=== PATIENT | male | born 1945 | race Caucasian/White ===

== ENCOUNTER 2017-02-27 06:19 | Inpatient (IN) | payer MEDICARE ==
[~2017-02-27] VITALS: Ht 174 cm; Wt 93.6 kg
[~2017-02-27 06:19] MED LIST: ASPI81CH CHEW; ATOR20TA15 PO; HYDR-4107 PO; LISI10TA3 PO; LORA-520 PO; MOBI7.5T PO; OMEP20TA PO; TRAM50TA PO
[2017-02-27] MEDS ORDERED: ceFAZolin 1,000 MG/NS 100 ML IV SCH ×2 (06:45)
[2017-02-27] MEDS ORDERED: LACTATED RINGER'S 1000 ML INJ 1,000 ML IV SCH (06:45)
[2017-02-27] MEDS ORDERED: ACETAMINOPHEN 1000 MG/100 ML 100 ML IV ONE (06:47)
[2017-02-27] MEDS ORDERED: LACTATED RINGER'S 1000 ML IV PRN (07:00)
[2017-02-27] MEDS ORDERED: POVIDONE IODINE 5% (ANTISEPSIS KIT) 4 APPLICATIONS EACH NARE PRN (07:00)
[2017-02-27] MEDS ORDERED: INSULIN HUMAN REGULAR 1,000 UNITS/10 ML VIAL SQ PRN (07:00)
[2017-02-27] MEDS ORDERED: METOPROLOL TARTRATE 25 MG TAB PO PRN (07:00)
[2017-02-27] MEDS ORDERED: SODIUM CHLORID 0.9% 500 ML IV PRN (07:00)
[2017-02-27] MEDS ORDERED: CHLORHEXIDINE GLUCONATE 2 % 1 PACK (2 CLOTHS) TOPICAL PRN (07:00)
[2017-02-27] MEDS ORDERED: CYCL1TAB29 PO (07:15)
[2017-02-27] MEDS ORDERED: LISI10TA3 PO (07:15)
[2017-02-27] MEDS ORDERED: LATA0.002 EACH EYE (07:15)
[2017-02-27] MEDS ORDERED: CLAR10CA3 PO (07:15)
[2017-02-27] MEDS ORDERED: AMLO10TA2 PO (07:15)
[2017-02-27] MEDS ORDERED: THROMBIN (TOPICAL) 5,000 UNIT VIAL ONE (07:47)
[2017-02-27] MEDS ORDERED: GELFOAM SIZE 100 ONE (07:48)
[2017-02-27] MEDS ORDERED: GENTAMICIN SULFATE 80 MG/2 ML VIAL ONE (07:48)
[2017-02-27] MEDS ORDERED: LIDOCAINE 2%/EPINEPHrine PF 1:200,000 20ML SDV ONE (07:48)
[2017-02-27] MEDS ORDERED: FAMOTIDINE 20 MG/2 ML VIAL ONE (08:08)
[2017-02-27] MEDS ORDERED: ceFAZolin INJ 1,000 MG VIAL IV ONE ×3 (11:20→15:24)
[2017-02-27] MEDS ORDERED: PROPOFOL 200 MG/20 ML AMP IV ONE (12:00)
[2017-02-27] MEDS ORDERED: ONDANSETRON HCL 4 MG/2 ML VIAL IV PUSH ONE (12:00)
[2017-02-27] MEDS ORDERED: LACTATED RINGER'S 1000 ML INJ 2,000 ML IV ONE (12:00)
[2017-02-27] MEDS ORDERED: SODIUM CHLOR 0.9% 1000 ML INJ 1,000 ML IV ONE (12:00)
[2017-02-27] MEDS ORDERED: PHENYLEPH/NS 1000 MCG/10 ML SYR IV ONE (12:00)
[2017-02-27] MEDS ORDERED: MIDAZOLAM HCL 2 MG/2 ML VIAL ONE (15:09)
[2017-02-27] MEDS ORDERED: DO NOT ADM ANY ANTICOAGULANT DRUGS PRN (16:54)
--- NOTE | 2017-02-27 16:56 | RADRPT ---
EXAM DATE/TIME: 02/27/2017 09:34 [place] COMPARISON: No previous studies available for comparison. INDICATIONS : L3-L4 laminectomy, discectomy, and interbody fusion. MEDICAL HISTORY : None. SURGICAL HISTORY : None. ENCOUNTER: Initial ACUITY: 1 day PAIN SCORE: 10/10 LOCATION: lumbar FINDINGS: AP and lateral cone-down views of the lumbar spine were obtained and demonstrate the patient status p ost fusion at the L3-4 level with bilateral pedicle screws and posterior fixation rods. Metallic daphney ers are noted in the interspace. There are degenerative changes at the L4-5 and L5-S1 levels with dis c space narrowing and mild hypertrophic change. The alignment is anatomic. The study is labeled assum ing 5 nonrib-bearing lumbar type vertebra. CONCLUSION: Status post fusion at the L3-4 level. Chris Coto MD on February 27, 2017 at 16:53 Board Certified Radiologist. This report was verified electronically.
[2017-02-27] MEDS ORDERED: *RESP: ALBUTEROL 2.5 MG/3 ML NEB (PRN) PERIprocedural Use ONLY NEB ONE ×2 (17:04→19:09)
[2017-02-27] MEDS ORDERED: HYDROmorphone HCL PF 1 MG/ML VIAL IV PRN ×2 (17:15)
[2017-02-27] MEDS ORDERED: METHOCARBAMOL 500 MG TAB PO PRN (17:15)
[2017-02-27] MEDS ORDERED: SODIUM CHLORIDE 0.9% FLUSH 10 ML FLUSH IV FLUSH PRN (17:15)
[2017-02-27] MEDS ORDERED: ONDANSETRON HCL 4 MG/2 ML VIAL IV PRN (17:15)
[2017-02-27] MEDS ORDERED: ACETAMINOPHEN/HYDROcodone 325 MG/5 MG TAB PO PRN (17:15)
[2017-02-27] MEDS ORDERED: MORPHINE SULFATE 4 MG/ML INJ IV PRN (17:15)
[2017-02-27] MEDS ORDERED: NALOXONE HCL 0.4 MG/ML AMP IV PRN ×2 (17:15→21:00)
[2017-02-27] MEDS ORDERED: LORATADINE 10 MG TAB PO PRN (17:15)
--- NOTE | 2017-02-27 17:15 | PD.OP ---
Operative Report Date of Surgery: Feb 27, 2017 Preoperative Diagnosis: (1) Lumbar canal stenosis (2) Spondylolisthesis of lumbar region (3) Lumbar radiculopathy 1. Severe Lumbar canal stenosis 2. Grade 1 L3 4 spondylolisthesis 3. Sequestered L3 4 herniated nucleus pulposus with central annular tear 4. Lumbar radiculopathy and neurogenic claudication Postoperative Diagnosis: (1) Lumbar canal stenosis (2) Spondylolisthesis of lumbar region (3) Lumbar radiculopathy 1. Severe Lumbar canal stenosis 2. Grade 1 L3 4 spondylolisthesis 3. Sequestered L3 4 herniated nucleus pulposus with central annular tear 4. Lumbar radiculopathy and neurogenic claudication Procedure: 1. Bilateral L34 decompressive semi-laminectomy with medial left and total right facetectomy and foraminotomy 2. L3 4 discectomy for section of sequestered herniated nucleus pulposis 3. L3 4 interbody fusion with PEEK cage, lamina autograft, demineralized bone matrix 4. Bilateral L3 4 posterior instrumentation with pedicle screw fixation 5. Left L3 4 posterior lateral fusion with lamina autograft and demineralized bone matrix 6. Repair of right dorsal L3 4 level dural tear-microtechnique Anesthesia: General Surgeon: Ronnie Hayes Case Management Social Worker(s): Prieto Wright Operation and Findings: Findings: Severe L3 4 bilateral ligament hypertrophy with significant canal stenosis. Large central annular tear was sequestered herniated nucleus pulposus impinging on the ventral thecal sac. Significant adhesions at the dorsal spinal canal with small dural tear developed despite cautious dissection. Primary repair under high-power magnification. Procedure in detail: The patient was brought to the operating room and general endotracheal anesthesia induced without difficulty Lines were established by Anesthesia Sequential compression devices were in place The patient was positioned prone on the concentric Billy table with the side bolsters and all extremities appropriately padded Leads for intraoperative neuro monitoring were placed prior to positioning and a baseline study obtained Appropriate timeout procedure was performed with all personnel present and in agreement The lumbar region was shaved with clippers and sterilely prepped and draped t 1% Xylocaine with epinephrine was used for local infiltration over the incision site which was made at the midline at L3-4 level. The incision was carried sharply down to the lumbodorsal fascia which was sharply incised adjacent to the spinous processes of L3 and L4 on each side. Ruff elevator was used for subperiosteal elevation of paraspinous musculature and fascia away from the lamina and spinous processes The deep self-retaining retractor was placed The appropriate levels were verified with intraoperative C-arm The microscope was moved into place and used for the remainder of the procedure including the closure The entry point for the pedicle screws were determined by anatomic and radiographic landmarks. The pedicle screw site was prepared with the awl followed by the pedicle finder and the tap. The ball tip probe was used to probe the pedicle screw site to ensure that there was no breakout through the pedicle. The appropriate size Spine Wave Sniper pedicle screw was placed at each pedicle screw site 6.5 mm screws were utilized. The screw placement was verified with intraoperative C-arm and intraoperative neural monitoring and felt to be satisfactory. The TPS drill with a 5 mm bone bur followed by the Kerrison rongeur was used to remove the inferior two thirds of the lamina at the cephalad level of the decompression and the superior third of the lamina at the caudal level of the decompression at the right L3 4 level. Then working across the midline towards the left side, the ventral aspect of the inferior left L3 and superior left L4 lamina were removed along with a moderate portion of the medial left L3 4 facet. Hypertrophied ligamentum flavum was elevated away from the thecal sac and exiting nerve roots with the thin ligament dissector and resected with a 15 blade knife and Kerrison rongeur. There were significant adhesions at the dorsal aspect of the canal between the ligament and the dura. Despite very careful dissection under the microscope, a small dural tear developed. This was primarily repaired with 6-0 Prolene suture with 2 small stitches placed. No further CSF leakage was encountered. The thecal sac and exiting nerve root were freed up from surrounding adhesions with the microdissectors and gently retracted medially revealing the underlying disc and annulus. There was moderate central annular tear with sequestered fragments of disc material protruding against the thecal sac. The thecal sac in this region was carefully freed up with the microdissectors. The L3 4 annulus was incised with the 11 blade knife and discectomy performed with pituitary biopsy forceps and straight and angled curettes The endplate scrapers were used to decorticate the endplates and any remaining debris was removed with the antibiotic irrigation and suction and pituitary biopsy forceps The appropriate size PEEK cage was packed with retained lamina cancellus autograft And a small amount of demineralized bone matrix The 8 x 10 x 28 mm lordotic cage was utilized. Prior to cage placement additional mixture of lamina autograft and demineralized bone matrix was placed in the L3 4 interspace using the funnel. The cage was placed at the L3 4 level with a good fit of the cage. The placement was checked under the microscope and with intraoperative C-arm and felt to be satisfactory. The thecal sac and nerve roots were probed with the long blunt nerve hook and felt to be well decompressed The rods were placed across the pedicle screws on each side. The locking caps were secured with the torque wrench and anti-torque device Compression was utilized to obtain satisfactory lordosis. The entire construct was checked with intraoperative C-arm and felt to be satisfactory The region was well irrigated with antibiotic irrigation The posterior lateral structures at the left L3 4 levels were decorticated with the TPS drill The shavings were left in place, to which was added the remaining autograft and allograft bone which was firmly packed in place for the posterior lateral fusion. The 10 [place] fluted drain was left in place at the operative side and brought out through a incision at the upper lumbar region and secured to the skin with nylon suture and attached to sterile suction bleeding was carefully controlled with the bipolar forceps The closure was performed with 0 Vicryl interrupted for the deep and superficial fascia, with 3-0 Vicryl for the subcutaneous closure and 4-0 Vicryl running subcuticular closure. Dressings sterile Mastisol, Steri-Strips and Primapore was placed The patient was turned into supine position and taken to recovery room in stable condition All counts were correct at the end of the case Estimated blood loss was 400 cc No specimen was sent to pathology Neuro monitoring was stable during the procedure Ronnie Hayes MD Feb 27, 2017 17:15
[2017-02-27] MEDS: D5-1/2 NS + KCL 20 MEQ INJ 1,000 ML IV SCH (17:40)
[2017-02-27] MEDS ORDERED: *morphine SULFATE 8 MG/ML PERIprocedure ONLY ONE ×3 (18:13→19:07)
[2017-02-27 18:15] LABS: AUTOMATED NEUTROPHIL # 7.1 TH/MM3 (1.8-7.7); BASOPHIL % 0.3 % (0.0-2.0); EOSINOPHIL % 0.1 % (0.0-4.0); HEMATOCRIT 40.3 % (39.0-51.0); HEMO FLAGS DIFF FINAL; LYMPH % 8.4 % (9.0-44.0); LYMPHOCYTE # 0.7 TH/MM3 (1.0-4.8); MEAN CELL VOLUME 96.1 FL (80.0-100.0); MEAN CORPUSCULAR HEMOGLOBIN 32.4 PG (27.0-34.0); MEAN CORPUSCULAR HGB CONC 33.7 % (32.0-36.0); MONO % 2.1 % (0.0-8.0); NEUT % 89.1 % (16.0-70.0); PLATELET COUNT 144 TH/MM3 (150-450); RED BLOOD COUNT 4.19 MIL/MM3 (4.50-5.90)
[2017-02-27 18:25] LABS: BICARBONATE 25.5 MEQ/L (21.0-32.0); POTASSIUM 4.6 MEQ/L (3.5-5.1)
[2017-02-27 21:00] VITALS: BP 115/58; PULSE 80; RESP 18; TEMP 98.6; O2SAT 96
[2017-02-27] MEDS ORDERED: HYDROmorphone HCL PCA 6 MG/30 ML IV SCH (21:00)
[2017-02-27] MEDS: LATANOPROST 0.005% OPHT SOLN 2.5 ML BTL EACH EYE SCH (21:00)
[2017-02-27] MEDS: SODIUM CHLORIDE 0.9% FLUSH 10 ML FLUSH IV FLUSH SCH (21:00)
[2017-02-27] MEDS: KETOROLAC TROMETHAMINE 30 MG/ML (IVP) VIAL IV PUSH SCH (21:58)
[2017-02-27] MEDS: DOCUSATE SODIUM 100 MG CAP PO SCH (21:58)
[2017-02-27] MEDS: PCA - TOTAL MG DILAUDID DELIVERED PER SHIFT OTHER SCH (22:00)
[2017-02-27 22:12] VITALS: O2SAT 97
[2017-02-28] VITALS (7 sets, daily range): BP systolic 105–135; BP diastolic 61–85; PULSE 72–86; RESP 18; TEMP 98.1–98.4; O2SAT 95–99
[2017-02-28] MEDS: KETOROLAC TROMETHAMINE 30 MG/ML (IVP) VIAL IV PUSH SCH ×3 (05:05→21:41)
[2017-02-28] MEDS: D5-1/2 NS + KCL 20 MEQ INJ 1,000 ML IV SCH ×2 (05:06→13:24)
[2017-02-28] MEDS: PCA - TOTAL MG DILAUDID DELIVERED PER SHIFT OTHER SCH ×3 (06:00→21:41)
[2017-02-28] MEDS: PANTOPRAZOLE SOD 40 MG DELAYED RELEASE TAB PO SCH (08:20)
[2017-02-28] MEDS: LISINOPRIL 10 MG TAB PO SCH (08:20)
[2017-02-28] MEDS: SODIUM CHLORIDE 0.9% FLUSH 10 ML FLUSH IV FLUSH SCH ×2 (08:21→21:00)
[2017-02-28] MEDS: DOCUSATE SODIUM 100 MG CAP PO SCH ×2 (08:21→21:00)
[2017-02-28 10:39] LABS: AUTOMATED NEUTROPHIL # 8.3 TH/MM3 (1.8-7.7); BASOPHIL % 0.2 % (0.0-2.0); EOSINOPHIL % 0.2 % (0.0-4.0); HEMATOCRIT 39.9 % (39.0-51.0); HEMO FLAGS DIFF FINAL; LYMPH % 15.5 % (9.0-44.0); LYMPHOCYTE # 1.7 TH/MM3 (1.0-4.8); MEAN CELL VOLUME 96.6 FL (80.0-100.0); MEAN CORPUSCULAR HGB CONC 33.1 % (32.0-36.0); MONO % 7.4 % (0.0-8.0); NEUT % 76.7 % (16.0-70.0); PLATELET COUNT 168 TH/MM3 (150-450); RED BLOOD COUNT 4.14 MIL/MM3 (4.50-5.90); RED CELL DISTRIBUTION WIDTH 13.1 % (11.6-17.2); WHITE BLOOD COUNT 10.9 TH/MM3 (4.0-11.0)
[2017-02-28 10:53] LABS: INTERNATIONAL NORMALIZED RATIO 0.9 RATIO; PROTHROMBIN TIME - PATIENT 10.4 SEC (9.8-11.6)
[2017-02-28] MEDS: oxyCODONE/ACETAMINOPHEN 10 MG/325 MG TAB PO PRN ×2 (10:55→16:55)
[2017-02-28 11:19] LABS: BICARBONATE 26.2 MEQ/L (21.0-32.0); POTASSIUM 3.8 MEQ/L (3.5-5.1)
[2017-02-28] MEDS: LATANOPROST 0.005% OPHT SOLN 2.5 ML BTL EACH EYE SCH (21:00)
--- NOTE | 2017-02-28 23:53 | HHI.NSPN ---
History Chief Complaint: back pain Interval History Patient was recent onset of progressive lower extremity pain, low back pain. Preoperative studies revealed severe L3 4 stenosis, grade 1 spondylolisthesis, herniated disc 02/27/17: L3 4 decompressive laminectomy discectomy interbody fusion Exam Results Vital Signs Date Time Temp Pulse Resp B/P (MAP) Pulse Ox O2 Delivery O2 Flow Rate FiO2 02/28/17 21:41 20 02/28/17 19:03 98.4 72 123/79 (94) 97 02/28/17 18:12 Nasal Cannula 2.00 Intake and Output 02/28/17 02/28/17 02/28/17 07:59 15:59 23:59 Intake Total 960 ml 1159 ml Output Total 860 ml 1493 ml 30 ml Balance -860 ml -533 ml 1129 ml Physical Examination Respirations clear and regular Cardiac regular Abdomen soft No extremity edema Sensation intact to light touch lower extremities Strength intact lower extremities Mild drain output Lab, Micro, Other Results Laboratory Tests Test 02/28/17 09:44 02/28/17 09:47 White Blood Count 10.9 TH/MM3 Red Blood Count 4.14 MIL/MM3 Hemoglobin 13.2 GM/DL Hematocrit 39.9 % Mean Corpuscular Volume 96.6 FL Mean Corpuscular Hemoglobin 32.0 PG Mean Corpuscular Hemoglobin Concent 33.1 % Red Cell Distribution Width 13.1 % Platelet Count 168 TH/MM3 Mean Platelet Volume 10.1 FL Neutrophils (%) (Auto) 76.7 % Lymphocytes (%) (Auto) 15.5 % Monocytes (%) (Auto) 7.4 % Eosinophils (%) (Auto) 0.2 % Basophils (%) (Auto) 0.2 % Neutrophils # (Auto) 8.3 TH/MM3 Lymphocytes # (Auto) 1.7 TH/MM3 Monocytes # (Auto) 0.8 TH/MM3 Eosinophils # (Auto) 0.0 TH/MM3 Basophils # (Auto) 0.0 TH/MM3 CBC Comment DIFF FINAL Differential Comment Prothrombin Time 10.4 SEC Prothromb Time International Ratio 0.9 RATIO Activated Partial Thromboplast Time 26.0 SEC Blood Urea Nitrogen 10 MG/DL Creatinine 0.93 MG/DL Random Glucose 124 MG/DL Calcium Level 8.9 MG/DL Sodium Level 137 MEQ/L Potassium Level 3.8 MEQ/L Chloride Level 101 MEQ/L Carbon Dioxide Level 26.2 MEQ/L Anion Gap 10 MEQ/L Estimat Glomerular Filtration Rate 80 ML/MIN Medical Decision Making Impression and Plan Impression: 1. Doing well following lumbar laminectomy, discectomy interbody fusion for severe stenosis, grade 1 anterior listhesis Plan: Continue therapy Discontinue drain Increase activity Discontinue STRAPPER Anticipate discharge home 03/01/2017 depending on clinical course Ronnie Hayes MD Feb 28, 2017 23:53
[2017-03-01 01:31] VITALS: BP 129/72; PULSE 75; RESP 20; TEMP 98.2; O2SAT 94
[2017-03-01] MEDS: KETOROLAC TROMETHAMINE 30 MG/ML (IVP) VIAL IV PUSH SCH (05:05)
[2017-03-01 06:04] VITALS: BP 130/81; PULSE 101; RESP 20; TEMP 98.6; O2SAT 94
[2017-03-01] MEDS: D5-1/2 NS + KCL 20 MEQ INJ 1,000 ML IV SCH (06:27)
[2017-03-01 08:00] VITALS: BP 122/79; PULSE 109; RESP 17; TEMP 98.4; O2SAT 94
[2017-03-01] MEDS: PANTOPRAZOLE SOD 40 MG DELAYED RELEASE TAB PO SCH (08:17)
[2017-03-01] MEDS: LISINOPRIL 10 MG TAB PO SCH (08:17)
[2017-03-01] MEDS: DOCUSATE SODIUM 100 MG CAP PO SCH (08:18)
[2017-03-01] MEDS: SODIUM CHLORIDE 0.9% FLUSH 10 ML FLUSH IV FLUSH SCH (08:18)
[2017-03-01 09:52] VITALS: O2SAT 97
[2017-03-01] MEDS: oxyCODONE/ACETAMINOPHEN 10 MG/325 MG TAB PO PRN (10:05)
[2017-03-01 12:39] VITALS: BP 112/74; PULSE 109; RESP 16; TEMP 98.5; O2SAT 97
[2017-03-01] MEDS ORDERED: OXYC1TAB36 PO (13:28)
[2017-03-01] MEDS ORDERED: METH500T3 PO (13:28)
[2017-03-01] MEDS ORDERED: DILA4TAB2 PO (13:28)
--- NOTE | 2017-03-01 13:33 | HHI.DCPOC ---
Discharge Care Plan Diagnosis: (1) Lumbar canal stenosis (2) Spondylolisthesis of lumbar region (3) Lumbar radiculopathy Your Health Problems Are: Difficulty with ADL Incision/Drains Exercise Tolerance Loss of Movements Chronic Pain Goals to Promote Your Health * To prevent worsening of your condition and complications * To maintain your health at the optimal level Directions to Meet Your Goals Take your medications as prescribed Follow your dietary instruction Follow activity as directed Keep your appointments as scheduled Take your immunizations and boosters as scheduled If your symptoms worsen call your PCP, if no PCP go to Urgent Care Center or Emergency Room Smoking is Dangerous to Your Health. Avoid second hand smoke Call the 24-hour hour crisis hotline for domestic abuse at Ronnie Hayes MD Mar 01, 2017 13:33
--- NOTE | 2017-03-01 13:37 | HHI.DS ---
Discharge Summary Admission Date Feb 27, 2017 at 06:19 Discharge Date: Mar 01, 2017 Admitting Diagnosis Lumbar spondylolisthesis with stenosis Lumbar radiculopathy (1) Lumbar canal stenosis Diagnosis: Secondary ICD Code: M48.06 - Spinal stenosis, lumbar region (2) Spondylolisthesis of lumbar region Diagnosis: Secondary ICD Code: M43.16 - Spondylolisthesis, lumbar region (3) Lumbar radiculopathy Diagnosis: Principal ICD Code: M54.16 - Radiculopathy, lumbar region Status: Acute Procedures Date of Surgery: Feb 27, 2017 Preoperative Diagnosis: (1) Lumbar canal stenosis (2) Spondylolisthesis of lumbar region (3) Lumbar radiculopathy 1. Severe Lumbar canal stenosis 2. Grade 1 L3 4 spondylolisthesis 3. Sequestered L3 4 herniated nucleus pulposus with central annular tear 4. Lumbar radiculopathy and neurogenic claudication Postoperative Diagnosis: (1) Lumbar canal stenosis (2) Spondylolisthesis of lumbar region (3) Lumbar radiculopathy 1. Severe Lumbar canal stenosis 2. Grade 1 L3 4 spondylolisthesis 3. Sequestered L3 4 herniated nucleus pulposus with central annular tear 4. Lumbar radiculopathy and neurogenic claudication Procedure: 1. Bilateral L34 decompressive semi-laminectomy with medial left and total right facetectomy and foraminotomy 2. L3 4 discectomy for section of sequestered herniated nucleus pulposis 3. L3 4 interbody fusion with PEEK cage, lamina autograft, demineralized bone matrix 4. Bilateral L3 4 posterior instrumentation with pedicle screw fixation 5. Left L3 4 posterior lateral fusion with lamina autograft and demineralized bone matrix 6. Repair of right dorsal L3 4 level dural tear-microtechnique CBC/BMP: 02/28/17 0944 02/28/17 0947 Significant Findings Laboratory Tests Test 02/27/17 17:53 02/28/17 09:44 02/28/17 09:47 Red Blood Count 4.19 MIL/MM3 (4.50-5.90) 4.14 MIL/MM3 (4.50-5.90) Platelet Count 144 TH/MM3 (150-450) Neutrophils (%) (Auto) 89.1 % (16.0-70.0) 76.7 % (16.0-70.0) Lymphocytes (%) (Auto) 8.4 % (9.0-44.0) Lymphocytes # (Auto) 0.7 TH/MM3 (1.0-4.8) Random Glucose 167 MG/DL (74-106) 124 MG/DL (74-106) Estimat Glomerular Filtration Rate 72 ML/MIN (>89) 80 ML/MIN (>89) Neutrophils # (Auto) 8.3 TH/MM3 (1.8-7.7) Hospital Course Patient admitted for the above noted procedure. Postoperative course uneventful. Maintained on RADIO INSTALLER pump for first day postoperative. Discharged home postoperative day #2 with stable vital signs. Pain control with oral medications. Doing well with physical therapy Wound dry and intact Lower extremities preoperative symptoms resolved postoperative period Ambulating well without assistance. Pt Condition on Discharge: Good Discharge Disposition: Discharge Home Discharge Instructions DIET: Follow Instructions for: As Tolerated, No Restrictions ACTIVITIES You can perform: Weight Bearing As Jaden Activities to Avoid: Lifting/Bending, Strenuous Activity New Medications: Hydromorphone (Dilaudid) 4 Mg Tab 4 MG PO Q6H PRN for BREAKTHROUGH PAIN, #60 TAB 0 Refills Methocarbamol (Methocarbamol) 500 Mg Tab 500 MG PO Q8H PRN for SPASM, #60 TAB Oxycodone-Acetaminophen (Oxycodone-Acetaminophen) 10-325 mg Tab 1 TAB PO Q6H PRN for PAIN SCALE 6 TO 10, #90 TAB Continued Medications: Amlodipine (Amlodipine) 10 Mg Tab 10 MG PO HS for Blood Pressure Management, #30 TAB 0 Refills Atorvastatin (Atorvastatin) 20 Mg Tab 20 MG PO HS for Cholesterol Management, #30 TAB 0 Refills Cyclobenzaprine (Flexeril) 10 Mg Tab 10 MG PO TID PRN for MUSCLE PAIN, #90 TAB 0 Refills Latanoprost Opth Drops (Latanoprost Opth Drops) 0.005% Drops 1 DROP EACH EYE HS for Glaucoma, #2.5 ML 0 Refills Refrigerate until opened. Lisinopril (Lisinopril) 10 Mg Tab 10 MG PO DAILY, #30 TAB 0 Refills Loratadine (Claritin) 10 Mg Cap 10 MG PO DAILY PRN for ALLERGIES, CAP 0 Refills Omeprazole (Omeprazole) 20 Mg Tab 20 MG PO DAILY, #30 TAB 0 Refills Discontinued Medications: Aspirin (Aspirin) 81 Mg Chew 81 MG CHEW DAILY, TAB 0 Refills Hydrocodone-Acetaminophen (Hydrocodone-Acetaminophen) 5-300 Mg Tab 1 TAB PO Q6H PRN for PAIN, TAB 0 Refills Meloxicam (Mobic) 7.5 Mg Tab 7.5 MG PO BID for Pain, TAB 0 Refills Tramadol (Tramadol) 50 Mg Tab 50 MG PO Q4H PRN for PAIN, TAB 0 Refills Ronnie Hayes MD Mar 01, 2017 13:37
--- NOTE | 2017-03-01 13:40 | HHI.NSPN ---
History Chief Complaint: back pain Interval History Date of Surgery: Feb 27, 2017 Preoperative Diagnosis: (1) Lumbar canal stenosis (2) Spondylolisthesis of lumbar region (3) Lumbar radiculopathy 1. Severe Lumbar canal stenosis 2. Grade 1 L3 4 spondylolisthesis 3. Sequestered L3 4 herniated nucleus pulposus with central annular tear 4. Lumbar radiculopathy and neurogenic claudication Postoperative Diagnosis: (1) Lumbar canal stenosis (2) Spondylolisthesis of lumbar region (3) Lumbar radiculopathy 1. Severe Lumbar canal stenosis 2. Grade 1 L3 4 spondylolisthesis 3. Sequestered L3 4 herniated nucleus pulposus with central annular tear 4. Lumbar radiculopathy and neurogenic claudication Procedure: 1. Bilateral L34 decompressive semi-laminectomy with medial left and total right facetectomy and foraminotomy 2. L3 4 discectomy for section of sequestered herniated nucleus pulposis 3. L3 4 interbody fusion with PEEK cage, lamina autograft, demineralized bone matrix 4. Bilateral L3 4 posterior instrumentation with pedicle screw fixation 5. Left L3 4 posterior lateral fusion with lamina autograft and demineralized bone matrix 6. Repair of right dorsal L3 4 level dural tear-microtechnique Patient was recent onset of progressive lower extremity pain, low back pain. Preoperative studies revealed severe L3 4 stenosis, grade 1 spondylolisthesis, herniated disc 02/27/17: L3 4 decompressive laminectomy discectomy interbody fusion System Review Comments Significant central low back pain at operative site No lower extremity pain weakness or numbness. Tolerating diet No bowel or bladder dysfunction Exam Results Vital Signs Date Time Temp Pulse Resp B/P (MAP) Pulse Ox O2 Delivery O2 Flow Rate FiO2 03/01/17 12:39 98.5 109 16 112/74 (87) 97 03/01/17 09:52 Nasal Cannula 2.00 Intake and Output 03/01/17 03/01/17 03/02/17 08:00 16:00 00:00 Output Total 20 ml Balance -20 ml Physical Examination Respirations clear and regular Cardiac regular Abdomen soft No extremity edema Sensation intact to light touch lower extremities Strength intact lower extremities Drain discontinued Dressing dry and intact No significant erythema or edema tenderness or drainage at the incision site. Medical Decision Making Impression and Plan Impression: 1. Doing well following lumbar laminectomy, discectomy interbody fusion for severe stenosis, grade 1 anterior listhesis Plan: Discharge home today Wound care, activity, exercise and brace instructions given. Proper lifting technique discussed Signs and symptoms to watch were fully discussed Medication use discussed. All questions answered Ronnie Hayes MD Mar 01, 2017 13:39
[2017-03-05] MEDS ORDERED: HYDR-3366 PO (11:27)
[2017-03-07] MEDS ORDERED: HYDR-3366 PO ×2 (12:07→12:11)
[2017-04-02] MEDS ORDERED: HYDR-3366 PO (15:46)
== END 2017-03-01 14:00 | disposition home or self-care (01) | DRG 460 ==
LOC: HSDI 06:19 → N05B 20:30
PROVIDERS: ADMIT Neurological Surgery; ATTEND Neurological Surgery
PROC: 01NB0ZZ Release Lumbar Nerve, Open Approach (ICD-10-PCS; 2017-02-27)
PROC: 0ST20ZZ Resection of Lumbar Vertebral Disc, Open Approach (ICD-10-PCS; 2017-02-27)
PROC: 00QT0ZZ Repair Spinal Meninges, Open Approach (ICD-10-PCS; 2017-02-27)
PROC: 0SG00A1 (ICD-10-PCS; principal; 2017-02-27 08:33)
DX: M48.06 Spinal stenosis, lumbar region (principal); M51.16 Intervertebral disc disorders with radiculopathy, lumbar region; G97.41 Accidental puncture or laceration of dura during a procedure; M43.16 Spondylolisthesis, lumbar region
CPT/HCPCS: 72100; 76000; 76937; 80048; 85025; 85610; 85730; 86850; 86900; 86901; 94150; 94640; 94664; C1713; J0131; J0690; J1170; J1580; J1885; J2250; J2270; J2370; J2405; J3010; J3480; J7030; J7120; J7613; L0484